=== PATIENT | male | born 1975 | race Caucasian/White ===

== ENCOUNTER 2022-04-30 14:19 | Emergency (ER) | payer OTHER, SELFPAY ==
[2022-04-30] VITALS (25 sets, daily range): BP systolic 122–157; BP diastolic 71–101; PULSE 48–72; TEMP 36.6; O2SAT 94–98; BMI 29.1
--- NOTE | 2022-04-30 15:00 | CRLHL7_ITS ---
For Patients: As a result of the Century Cures Act, medical imaging exams and procedure reports are released immediately into your electronic medical record. You may view this report before your referring provider. If you have questions, please contact your health care provider. INDICATION: Chest/back pain TECHNIQUE: Noncontrast CT of the chest. CTA of the chest, abdomen, and pelvis. 95 cc of Isovue administered intravenously COMPARISON: CT pelvis dated 03/25/2021, and CT of the abdomen and pelvis dated 03/17/2021. FINDINGS: Vascular structures: Status post previous median sternotomy and aortic valve repair. Coronary artery calcifications. No thoracic aortic aneurysm or intramural hematoma. No dissection in the descending or transverse aorta. Too much motion is present in the ascending aorta to detect a dissection in the ascending portion. The main pulmonary artery is normal in size. No central pulmonary artery embolism. No abdominal aortic aneurysm or dissection. Proximal visceral and renal arteries are patent. Accessory renal arteries bilaterally. Iliac arteries are patent. Thyroid: Unremarkable Airways: The central airways are patent. No bronchiectasis Lungs: No suspicious pulmonary opacities. Heart/Pericardium: Unremarkable. Pleural spaces: No pneumothorax or pleural effusion. Lymph Nodes: No significant axillary, mediastinal, or hilar lymphadenopathy. Arterial phase imaging limits evaluation of solid organs and bowel. Liver: Non-cirrhotic morphology. No suspicious arterial phase liver lesion. Gallbladder: Unremarkable. No intra or extrahepatic biliary ductal dilatation Spleen: Normal in size. Adrenal glands: Unremarkable. Kidneys: No hydronephrosis. Symmetric enhancement. Pancreas: Unremarkable. Lymph nodes: No retroperitoneal, mesenteric, inguinal, or pelvic adenopathy by CT criteria. Bowel: No bowel obstruction. Urinary bladder: Apparent uniform diffuse urinary bladder wall thickening, which could be due to underdistention. Reproductive structures: Unremarkable. Peritoneum: No abdominal/pelvis ascites or free intraperitoneal air. MSK: No aggressive appearing osseous lesion. 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 Other: Previous left inguinal hernia repair. The previous postoperative hematoma has resolved. IMPRESSION: 1. No aortic aneurysm, thoracic aortic intramural hematoma, or dissection. 2. No central pulmonary artery embolism. 3. Previous median sternotomy and aortic valve repair. 4. Coronary artery disease. 5. Apparent urinary bladder wall thickening may be due to underdistention. Correlate with signs/symptoms of urinary tract infection. Please note that all CT scans at this facility use dose modulation, iterative reconstruction, and/or weight-based dosing when appropriate to reduce radiation dose to as low as reasonably achievable. Dictated by Ruben Saldivar MD @ 04/30/2022 4:16:51 PM (Electronically Signed)
[2022-04-30 15:07] LABS: Basophils Absolute Auto 0.03 K/uL (0.00-0.30); Basophils Percent Auto 0.5 % (0.0-3.0); Eosinophils Absolute Auto 0.25 K/uL (0.00-0.50); Eosinophils Percent Auto 3.9 % (0.0-7.0); Hematocrit 43.7 % (37.0-53.0); Hemoglobin* 14.8 gm/dL (13.5-17.5); Immature Granulocytes Abs Auto 0.02 K/uL (0.00-0.30); Lymphocytes Absolute Auto 1.42 K/uL (0.90-2.90); Mean Corpuscular HGB Conc 34 gm/dL (32-36); Mean Corpuscular Hemoglobin 29 pg (26-34); Mean Corpuscular Volume 85 fL (80-100); Monocytes Percent Auto 5.9 % (0.0-11.0); Neutrophils Absolute Auto 4.36 K/uL (1.7-7.0); Neutrophils Percent Auto 67.4 % (42.0-72.0); Platelet Count* 252 K/uL (140-440); RDW Coefficient of Variation % 12.4 % (11.5-15.5); Red Blood Count 5.13 m/uL (4.30-5.90); White Blood Count* 6.46 K/uL (4.50-11.00)
[2022-04-30 15:17] LABS: Slide Review Reflex No
[2022-04-30 15:18] LABS: Chloride* 103 mmol/L (96-114)
[2022-04-30 15:19] LABS: Albumin* 4.4 g/dL (3.3-5.0); Potassium* 3.8 mmol/L (3.6-5.1); Sodium* 138 mmol/L (135-149)
[2022-04-30 15:21] LABS: Creatinine* 1.1 mg/dL (0.5-1.5); Est. Creatinine Clearance* 74.92; Estimated Glomerular Filt Rate 83 ml/min
[2022-04-30 15:22] LABS: Alanine Aminotransferase* 36 U/L (4-50); Alkaline Phosphatase* 62 U/L (40-150); Aspartate Amino Transferase* 31 U/L (12-35); Bilirubin Direct* 0.2 mg/dL (0.0-0.5); Bilirubin Total* 0.6 mg/dL (0.1-1.5); Blood Urea Nitrogen* 17 mg/dL (5-24); Carbon Dioxide* 28 mmol/L (20-32); Glucose* 116 mg/dL (60-115); Lipase* 96 U/L (23-300); Total Protein* 7.4 g/dL (6.0-8.3)
[2022-04-30 15:25] LABS: C Reactive Protein* < 0.5 mg/dL (0.5-1.0)
--- NOTE | 2022-04-30 15:48 | ED.GENADULT ---
HPI - General Adult General Chief complaint: Chest Pain <Michelle Galindo MD - Last Filed: 04/30/22 16:22> Stated complaint: Possible heart attack symptoms, clammy/tingling <Michelle Galindo MD - Last Filed: 04/30/22 16:22> Time Seen by Provider: 04/30/22 14:40 <Michelle Galindo MD - Last Filed: 04/30/22 16:22> Source: patient <Michelle Galindo MD - Last Filed: 04/30/22 16:22> Mode of arrival: ambulatory <Michelle Galindo MD - Last Filed: 04/30/22 16:22> Limitations: no limitations <Michelle Galindo MD - Last Filed: 04/30/22 16:22> History of Present Illness HPI narrative: 46-year-old male coming in today concerned about chest pain. He states that on Sunday of this week, so 5 days ago, he had an episode of central chest pain that radiated to the middle of his back. This pain was very sharp very debilitating but only lasted about 15 minutes or so. The following day on Sunday, he felt very tired and he came home after work and slept for 10 hours which is very unusual. He felt fine for the remainder of the week and weekend until today when he was in his usual state of health at and started having again, that same central chest pain and pain that radiated to the middle of his back. He thought he needed to go out for a walk to shake it off so he grabbed this dog and went for a walk. 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 Did not make the chest pain any better and so he came to the ER. Now that he is here, his chest pain and back pain has resolved. While this was occurring he felt very clammy. He denied any dizziness but again had that episode of feeling lightheaded when he bent down. He denies any fevers or chills recently. Normal appetite today. Nothing seems to make this chest and back pain better or worse. 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 He also has a very strong history of heart disease: Sister had a heart attack in her early 40s and father had a major heart attack when he was 47. Patient uses nicotine troches but does not smoke or use tobacco, denies any drug use including cocaine, heroin or methamphetamines. <Michelle Galindo MD - Last Filed: 04/30/22 16:22> Related Data Home medications: Home Medications Medication Instructions Recorded Confirmed aspirin .ROUTE 04/30/22 lisinopril 5 mg tablet mg 04/30/22 metoprolol succinate 25 mg mg PO 04/30/22 tablet,extended release 24 hr omeprazole 20 mg capsule,delayed mg 04/30/22 release warfarin 2.5 mg tablet mg 04/30/22 <Michelle Galindo MD - Last Filed: 04/30/22 16:22> Allergies/adverse reactions: Allergies Allergy/AdvReac Type Severity Reaction Status Date / Time No Known Drug Allergies Allergy Verified 04/30/22 15:16 <Michelle Galindo MD - Last Filed: 04/30/22 16:22> Review of Systems Status of ROS: Reports: 10 or more systems reviewed and unremarkable except as noted in History and below <Michelle Galindo MD - Last Filed: 04/30/22 16:22> [facility] Social History: Social History Smoking Status: Former smoker Do you use any of these nicotine containing products: None Second hand tobacco smoke exposure: No How often do you have a drink containing alcohol: monthly or less How many standard drinks containing alcohol do you have on a typical day: 1 or 2 How often do you have six or more drinks on one occasion: Never AUDIT-C Alcohol total score: 1 Non-prescribed substance use: denies use <Michelle Galindo MD - Last Filed: 04/30/22 16:22> Exam Narrative: Exam Narrative: Well-nourished well-developed patient in no acute distress. Alert and oriented. Answers questions appropriately. Mood and affect are appropriate. Thoughts are goal oriented and rational. No tangential or magical thinking noted. Patient speaks in full sentences without needing to catch his breath. HEENT: Normocephalic atraumatic. Pupils are equally round reactive to light. Extraocular muscles are intact. Conjunctivae are moist without any icterus noted. Moist mucous membranes. Posterior pharynx is normal. Neck is soft without any lymphadenopathy or thyromegaly. No masses are appreciated. Cardiovascular: Heart is regular rate and rhythm S1 and S2 are present without any murmurs. Pain is not reproduced with palpation of the chest wall. He has scar the central chest wall consistent with aortic valve replacement. Lungs: Clear to auscultation bilaterally no wheezes rhonchi or rales are appreciated. Patient takes deep breaths without any discomfort. Abdomen: Soft and nontender nondistended with normal bowel sounds. No guarding or rebound. No masses or organomegaly appreciated. Extremities: Bilateral lower extremities are without edema. Normal DP and PT pulses. Skin: Well perfused without any obvious rashes. <Michelle Galindo MD - Last Filed: 04/30/22 16:22> Const: Vital Signs, click to edit/add: Vital Signs - 24 hr 04/30/22 14:32 04/30/22 14:29 04/30/22 14:30 Temperature 97.9 F Pulse Rate 70 70 Pulse Rate [Right Pulse Oximeter] 69 Blood Pressure 157/101 H Blood Pressure [Le ft Upper Arm] 157/101 H Pulse Oximetry 94 95 94 Oxygen Delivery Me thod Room Air 04/30/22 14:37 04/30/22 15:02 04/30/22 15:03 Temperature Pulse Rate 70 66 63 Pulse Rate [Right Pulse Oximeter] Blood Pressure 138/91 H 132/86 Blood Pressure [Le ft Upper Arm] Pulse Oximetry 94 95 95 Oxygen Delivery Me thod 04/30/22 15:30 04/30/22 15:32 04/30/22 15:33 Temperature Pulse Rate 62 68 64 Pulse Rate [Right Pulse Oximeter] Blood Pressure 131/83 Blood Pressure [Le ft Upper Arm] Pulse Oximetry 96 96 95 Oxygen Delivery Me thod 04/30/22 16:00 04/30/22 16:02 Temperature Pulse Rate 72 68 Pulse Rate [Right Pulse Oximeter] Blood Pressure 122/79 Blood Pressure [Le ft Upper Arm] Pulse Oximetry 96 95 Oxygen Delivery Me thod <Michelle Galindo MD - Last Filed: 04/30/22 16:22> Vital Signs, click to edit/add: Vital Signs - 24 hr 04/30/22 14:32 04/30/22 14:29 04/30/22 14:30 Temperature 97.9 F Pulse Rate 70 70 Pulse Rate [Right Pulse Oximeter] 69 Blood Pressure 157/101 H Blood Pressure [Le ft Upper Arm] 157/101 H Pulse Oximetry 94 95 94 Oxygen Delivery Me thod Room Air 04/30/22 14:37 04/30/22 15:02 04/30/22 15:03 Temperature Pulse Rate 70 66 63 Pulse Rate [Right Pulse Oximeter] Blood Pressure 138/91 H 132/86 Blood Pressure [Le ft Upper Arm] Pulse Oximetry 94 95 95 Oxygen Delivery Me thod 04/30/22 15:30 04/30/22 15:32 04/30/22 15:33 Temperature Pulse Rate 62 68 64 Pulse Rate [Right Pulse Oximeter] Blood Pressure 131/83 Blood Pressure [Le ft Upper Arm] Pulse Oximetry 96 96 95 Oxygen Delivery Me thod 04/30/22 16:00 04/30/22 16:02 Temperature Pulse Rate 72 68 Pulse Rate [Right Pulse Oximeter] Blood Pressure 122/79 Blood Pressure [Le ft Upper Arm] Pulse Oximetry 96 95 Oxygen Delivery Me thod <Dinah Cordova MD - Last Filed: 06/14/22 01:56> Course Course Hospital Course: Initial EKG showed normal sinus rhythm. We will rule out coronary artery disease with serial cardiac enzymes, as well as aortic dissection given his symptoms. Care will be transferred to oncoming physician. <Michelle Galindo MD - Last Filed: 04/30/22 16:22> Vital Signs Vital signs: Initial Vital Signs Pulse Rate 70 04/30/22 14:29 Blood Pressure 157/101 H 04/30/22 14:29 Blood Pressure Mean 119 04/30/22 14:29 Pulse Oximetry 95 04/30/22 14:29 Vital Signs Pulse Rate 70 04/30/22 14:29 Blood Pressure 157/101 H 04/30/22 14:29 Pulse Oximetry 95 04/30/22 14:29 Temperature 97.9 F 04/30/22 14:32 Pulse Rate 51 L 04/30/22 19:02 Blood Pressure 128/83 04/30/22 19:02 Pulse Oximetry 96 04/30/22 19:02 Oxygen Delivery Method 04/30/22 14:32 <Michelle Galindo MD - Last Filed: 04/30/22 16:22> Initial Vital Signs Pulse Rate 70 04/30/22 14:29 Blood Pressure 157/101 H 04/30/22 14:29 Blood Pressure Mean 119 04/30/22 14:29 Pulse Oximetry 95 04/30/22 14:29 Vital Signs Pulse Rate 70 04/30/22 14:29 Blood Pressure 157/101 H 04/30/22 14:29 Pulse Oximetry 95 04/30/22 14:29 Temperature 97.9 F 04/30/22 14:32 Pulse Rate 51 L 04/30/22 19:02 Blood Pressure 128/83 04/30/22 19:02 Pulse Oximetry 96 04/30/22 19:02 Oxygen Delivery Method 04/30/22 14:32 <Dinah Cordova MD - Last Filed: 06/14/22 01:56> Medical Decision Making MDM Narrative Medical decision making narrative: 1. Chest pain-at this time EKGs and cardiac enzymes are reassuring. In addition chest CT shows no evidence of aortic dissection. However, would recommend follow-up for scheduled outpatient stress test. Would recommend light activity until such time. Of course for recurrence of pain would have him return to the emergency room for further evaluation. 2. Disposition-home and return as needed for recurrent pain. <Dinah Cordova MD - Last Filed: 06/14/22 01:56> Medical Records Medical records reviewed: Yes I reviewed the patient's medical records <Dinah Cordova MD - Last Filed: 06/14/22 01:56> Lab Data Lab results reviewed: Yes I reviewed the patient's lab results <Dinah Cordova MD - Last Filed: 06/14/22 01:56> Labs: Lab Results 04/30/22 04/30/22 04/30/22 Range/Units 14:30 14:30 14:30 WBC 6.46 (4.50-11.00) K/uL RBC 5.13 (4.30-5.90) m/uL Hgb 14.8 (13.5-17.5) gm/dL Hct 43.7 (37.0-53.0) % MCV 85 (80-100) fL MCH 29 (26-34) pg MCHC 34 (32-36) gm/dL RDW Coeff of Justin 12.4 (11.5-15.5) % Plt Count 252 (140-440) K/uL Neut % (Auto) 67.4 (42.0-72.0) % Lymph % (Auto) 22.0 (20-44) % [place] % (Auto) 5.9 (0.0-11.0) % Eos % (Auto) 3.9 (0.0-7.0) % Baso % (Auto) 0.5 (0.0-3.0) % Neut # (Auto) 4.36 (1.7-7.0) K/uL Lymph # (Auto) 1.42 (0.90-2.90) K/uL [place] # (Auto) 0.40 (0.00-0.90) K/UL Eos # (Auto) 0.25 (0.00-0.50) K/uL Baso # (Auto) 0.03 (0.00-0.30) K/uL Abs Immat Gran (auto) 0.02 (0.00-0.30) K/uL ESR 2 (2-15) mm/hr INR (0.91-1.10) Sodium 138 (135-149) mmol/L Potassium 3.8 (3.6-5.1) mmol/L Chloride 103 (96-114) mmol/L Carbon Dioxide 28 (20-32) mmol/L BUN 17 (5-24) mg/dL Creatinine 1.1 (0.5-1.5) mg/dL Estimated Creat Clear 74.92 Estimated GFR 83 ml/min Glucose 116 H (60-115) mg/dL Lactate (0.5-1.9) mmol/L Calcium 9.0 (8.4-10.6) mg/dL Total Bilirubin 0.6 (0.1-1.5) mg/dL Direct Bilirubin 0.2 (0.0-0.5) mg/dL AST 31 (12-35) U/L ALT 36 (4-50) U/L Alkaline Phosphatase 62 (40-150) U/L Troponin I (0.01-0.04) ng/mL C-Reactive Protein < 0.5 L (0.5-1.0) mg/dL Total Protein 7.4 (6.0-8.3) g/dL Albumin 4.4 (3.3-5.0) g/dL Lipase 96 (23-300) U/L Urine Color (Yellow) Urine Appearance (Clear) Urine pH (5.0-8.5) Ur Specific [place] (1.000-1.030) Urine Protein (Negative) Urine Glucose (UA) (Negative) Urine Ketones (Negative) Urine Blood (Negative) Urine Nitrite (Negative) Urine Bilirubin (Negative) Urine Urobilinogen (0.2-1.0) Ur Leukocyte Esterase (Negative) Urine RBC (0-2) Urine WBC (0-5) Ur Squamous Epith Cells (None-Few) Urine Bacteria (None) SARS-CoV-2 (PCR) (Negative) Influenza Type A (PCR) (Negative) Influenza Type B (PCR) (Negative) POC Troponin I (0.01-0.04) ng/ml 04/30/22 04/30/22 04/30/22 Range/Units 14:30 14:30 15:00 WBC (4.50-11.00) K/uL RBC (4.30-5.90) m/uL Hgb (13.5-17.5) gm/dL Hct (37.0-53.0) % MCV (80-100) fL MCH (26-34) pg MCHC (32-36) gm/dL RDW Coeff of Justin (11.5-15.5) % Plt Count (140-440) K/uL Neut % (Auto) (42.0-72.0) % Lymph % (Auto) (20-44) % [place] % (Auto) (0.0-11.0) % Eos % (Auto) (0.0-7.0) % Baso % (Auto) (0.0-3.0) % Neut # (Auto) (1.7-7.0) K/uL Lymph # (Auto) (0.90-2.90) K/uL [place] # (Auto) (0.00-0.90) K/UL Eos # (Auto) (0.00-0.50) K/uL Baso # (Auto) (0.00-0.30) K/uL Abs Immat Gran (auto) (0.00-0.30) K/uL ESR (2-15) mm/hr INR 1.71 H (0.91-1.10) Sodium (135-149) mmol/L Potassium (3.6-5.1) mmol/L Chloride (96-114) mmol/L Carbon Dioxide (20-32) mmol/L BUN (5-24) mg/dL Creatinine (0.5-1.5) mg/dL Estimated Creat Clear Estimated GFR ml/min Glucose (60-115) mg/dL Lactate 2.0 H (0.5-1.9) mmol/L Calcium (8.4-10.6) mg/dL Total Bilirubin (0.1-1.5) mg/dL Direct Bilirubin (0.0-0.5) mg/dL AST (12-35) U/L ALT (4-50) U/L Alkaline Phosphatase (40-150) U/L Troponin I (0.01-0.04) ng/mL C-Reactive Protein (0.5-1.0) mg/dL Total Protein (6.0-8.3) g/dL Albumin (3.3-5.0) g/dL Lipase (23-300) U/L Urine Color (Yellow) Urine Appearance (Clear) Urine pH (5.0-8.5) Ur Specific [place] (1.000-1.030) Urine Protein (Negative) Urine Glucose (UA) (Negative) Urine Ketones (Negative) Urine Blood (Negative) Urine Nitrite (Negative) Urine Bilirubin (Negative) Urine Urobilinogen (0.2-1.0) Ur Leukocyte Esterase (Negative) Urine RBC (0-2) Urine WBC (0-5) Ur Squamous Epith Cells (None-Few) Urine Bacteria (None) SARS-CoV-2 (PCR) (Negative) Influenza Type A (PCR) (Negative) Influenza Type B (PCR) (Negative) POC Troponin I 0.00 L (0.01-0.04) ng/ml 04/30/22 04/30/22 04/30/22 Range/Units 17:43 18:15 18:34 WBC (4.50-11.00) K/uL RBC (4.30-5.90) m/uL Hgb (13.5-17.5) gm/dL Hct (37.0-53.0) % MCV (80-100) fL MCH (26-34) pg MCHC (32-36) gm/dL RDW Coeff of Justin (11.5-15.5) % Plt Count (140-440) K/uL Neut % (Auto) (42.0-72.0) % Lymph % (Auto) (20-44) % [place] % (Auto) (0.0-11.0) % Eos % (Auto) (0.0-7.0) % Baso % (Auto) (0.0-3.0) % Neut # (Auto) (1.7-7.0) K/uL Lymph # (Auto) (0.90-2.90) K/uL [place] # (Auto) (0.00-0.90) K/UL Eos # (Auto) (0.00-0.50) K/uL Baso # (Auto) (0.00-0.30) K/uL Abs Immat Gran (auto) (0.00-0.30) K/uL ESR (2-15) mm/hr INR (0.91-1.10) Sodium (135-149) mmol/L Potassium (3.6-5.1) mmol/L Chloride (96-114) mmol/L Carbon Dioxide (20-32) mmol/L BUN (5-24) mg/dL Creatinine (0.5-1.5) mg/dL Estimated Creat Clear Estimated GFR ml/min Glucose (60-115) mg/dL Lactate (0.5-1.9) mmol/L Calcium (8.4-10.6) mg/dL Total Bilirubin (0.1-1.5) mg/dL Direct Bilirubin (0.0-0.5) mg/dL AST (12-35) U/L ALT (4-50) U/L Alkaline Phosphatase (40-150) U/L Troponin I < 0.01 L (0.01-0.04) ng/mL C-Reactive Protein (0.5-1.0) mg/dL Total Protein (6.0-8.3) g/dL Albumin (3.3-5.0) g/dL Lipase (23-300) U/L Urine Color Yellow (Yellow) Urine Appearance Clear (Clear) Urine pH 5.5 (5.0-8.5) Ur Specific [place] <= 1.005 (1.000-1.030) Urine Protein Negative (Negative) Urine Glucose (UA) Negative (Negative) Urine Ketones Negative (Negative) Urine Blood Negative (Negative) Urine Nitrite Negative (Negative) Urine Bilirubin Negative (Negative) Urine Urobilinogen 0.2 (0.2-1.0) Ur Leukocyte Esterase Negative (Negative) Urine RBC 0-2 (0-2) Urine WBC 0-2 (0-5) Ur Squamous Epith Cells None (None-Few) Urine Bacteria None (None) SARS-CoV-2 (PCR) Negative SARS-CoV-2 (Negative) Influenza Type A (PCR) Negative PCR FLU A (Negative) Influenza Type B (PCR) Negative PCR FLU B (Negative) POC Troponin I (0.01-0.04) ng/ml <Michelle Galindo MD - Last Filed: 04/30/22 16:22> Lab Results 04/30/22 04/30/22 04/30/22 Range/Units 14:30 14:30 14:30 WBC 6.46 (4.50-11.00) K/uL RBC 5.13 (4.30-5.90) m/uL Hgb 14.8 (13.5-17.5) gm/dL Hct 43.7 (37.0-53.0) % MCV 85 (80-100) fL MCH 29 (26-34) pg MCHC 34 (32-36) gm/dL RDW Coeff of Justin 12.4 (11.5-15.5) % Plt Count 252 (140-440) K/uL Neut % (Auto) 67.4 (42.0-72.0) % Lymph % (Auto) 22.0 (20-44) % [place] % (Auto) 5.9 (0.0-11.0) % Eos % (Auto) 3.9 (0.0-7.0) % Baso % (Auto) 0.5 (0.0-3.0) % Neut # (Auto) 4.36 (1.7-7.0) K/uL Lymph # (Auto) 1.42 (0.90-2.90) K/uL [place] # (Auto) 0.40 (0.00-0.90) K/UL Eos # (Auto) 0.25 (0.00-0.50) K/uL Baso # (Auto) 0.03 (0.00-0.30) K/uL Abs Immat Gran (auto) 0.02 (0.00-0.30) K/uL ESR 2 (2-15) mm/hr INR (0.91-1.10) Sodium 138 (135-149) mmol/L Potassium 3.8 (3.6-5.1) mmol/L Chloride 103 (96-114) mmol/L Carbon Dioxide 28 (20-32) mmol/L BUN 17 (5-24) mg/dL Creatinine 1.1 (0.5-1.5) mg/dL Estimated Creat Clear 74.92 Estimated GFR 83 ml/min Glucose 116 H (60-115) mg/dL Lactate (0.5-1.9) mmol/L Calcium 9.0 (8.4-10.6) mg/dL Total Bilirubin 0.6 (0.1-1.5) mg/dL Direct Bilirubin 0.2 (0.0-0.5) mg/dL AST 31 (12-35) U/L ALT 36 (4-50) U/L Alkaline Phosphatase 62 (40-150) U/L Troponin I (0.01-0.04) ng/mL C-Reactive Protein < 0.5 L (0.5-1.0) mg/dL Total Protein 7.4 (6.0-8.3) g/dL Albumin 4.4 (3.3-5.0) g/dL Lipase 96 (23-300) U/L Urine Color (Yellow) Urine Appearance (Clear) Urine pH (5.0-8.5) Ur Specific [place] (1.000-1.030) Urine Protein (Negative) Urine Glucose (UA) (Negative) Urine Ketones (Negative) Urine Blood (Negative) Urine Nitrite (Negative) Urine Bilirubin (Negative) Urine Urobilinogen (0.2-1.0) Ur Leukocyte Esterase (Negative) Urine RBC (0-2) Urine WBC (0-5) Ur Squamous Epith Cells (None-Few) Urine Bacteria (None) SARS-CoV-2 (PCR) (Negative) Influenza Type A (PCR) (Negative) Influenza Type B (PCR) (Negative) POC Troponin I (0.01-0.04) ng/ml 04/30/22 04/30/22 04/30/22 Range/Units 14:30 14:30 15:00 WBC (4.50-11.00) K/uL RBC (4.30-5.90) m/uL Hgb (13.5-17.5) gm/dL Hct (37.0-53.0) % MCV (80-100) fL MCH (26-34) pg MCHC (32-36) gm/dL RDW Coeff of Justin (11.5-15.5) % Plt Count (140-440) K/uL Neut % (Auto) (42.0-72.0) % Lymph % (Auto) (20-44) % [place] % (Auto) (0.0-11.0) % Eos % (Auto) (0.0-7.0) % Baso % (Auto) (0.0-3.0) % Neut # (Auto) (1.7-7.0) K/uL Lymph # (Auto) (0.90-2.90) K/uL [place] # (Auto) (0.00-0.90) K/UL Eos # (Auto) (0.00-0.50) K/uL Baso # (Auto) (0.00-0.30) K/uL Abs Immat Gran (auto) (0.00-0.30) K/uL ESR (2-15) mm/hr INR 1.71 H (0.91-1.10) Sodium (135-149) mmol/L Potassium (3.6-5.1) mmol/L Chloride (96-114) mmol/L Carbon Dioxide (20-32) mmol/L BUN (5-24) mg/dL Creatinine (0.5-1.5) mg/dL Estimated Creat Clear Estimated GFR ml/min Glucose (60-115) mg/dL Lactate 2.0 H (0.5-1.9) mmol/L Calcium (8.4-10.6) mg/dL Total Bilirubin (0.1-1.5) mg/dL Direct Bilirubin (0.0-0.5) mg/dL AST (12-35) U/L ALT (4-50) U/L Alkaline Phosphatase (40-150) U/L Troponin I (0.01-0.04) ng/mL C-Reactive Protein (0.5-1.0) mg/dL Total Protein (6.0-8.3) g/dL Albumin (3.3-5.0) g/dL Lipase (23-300) U/L Urine Color (Yellow) Urine Appearance (Clear) Urine pH (5.0-8.5) Ur Specific [place] (1.000-1.030) Urine Protein (Negative) Urine Glucose (UA) (Negative) Urine Ketones (Negative) Urine Blood (Negative) Urine Nitrite (Negative) Urine Bilirubin (Negative) Urine Urobilinogen (0.2-1.0) Ur Leukocyte Esterase (Negative) Urine RBC (0-2) Urine WBC (0-5) Ur Squamous Epith Cells (None-Few) Urine Bacteria (None) SARS-CoV-2 (PCR) (Negative) Influenza Type A (PCR) (Negative) Influenza Type B (PCR) (Negative) POC Troponin I 0.00 L (0.01-0.04) ng/ml 04/30/22 04/30/22 04/30/22 Range/Units 17:43 18:15 18:34 WBC (4.50-11.00) K/uL RBC (4.30-5.90) m/uL Hgb (13.5-17.5) gm/dL Hct (37.0-53.0) % MCV (80-100) fL MCH (26-34) pg MCHC (32-36) gm/dL RDW Coeff of Justin (11.5-15.5) % Plt Count (140-440) K/uL Neut % (Auto) (42.0-72.0) % Lymph % (Auto) (20-44) % [place] % (Auto) (0.0-11.0) % Eos % (Auto) (0.0-7.0) % Baso % (Auto) (0.0-3.0) % Neut # (Auto) (1.7-7.0) K/uL Lymph # (Auto) (0.90-2.90) K/uL [place] # (Auto) (0.00-0.90) K/UL Eos # (Auto) (0.00-0.50) K/uL Baso # (Auto) (0.00-0.30) K/uL Abs Immat Gran (auto) (0.00-0.30) K/uL ESR (2-15) mm/hr INR (0.91-1.10) Sodium (135-149) mmol/L Potassium (3.6-5.1) mmol/L Chloride (96-114) mmol/L Carbon Dioxide (20-32) mmol/L BUN (5-24) mg/dL Creatinine (0.5-1.5) mg/dL Estimated Creat Clear Estimated GFR ml/min Glucose (60-115) mg/dL Lactate (0.5-1.9) mmol/L Calcium (8.4-10.6) mg/dL Total Bilirubin (0.1-1.5) mg/dL Direct Bilirubin (0.0-0.5) mg/dL AST (12-35) U/L ALT (4-50) U/L Alkaline Phosphatase (40-150) U/L Troponin I < 0.01 L (0.01-0.04) ng/mL C-Reactive Protein (0.5-1.0) mg/dL Total Protein (6.0-8.3) g/dL Albumin (3.3-5.0) g/dL Lipase (23-300) U/L Urine Color Yellow (Yellow) Urine Appearance Clear (Clear) Urine pH 5.5 (5.0-8.5) Ur Specific [place] <= 1.005 (1.000-1.030) Urine Protein Negative (Negative) Urine Glucose (UA) Negative (Negative) Urine Ketones Negative (Negative) Urine Blood Negative (Negative) Urine Nitrite Negative (Negative) Urine Bilirubin Negative (Negative) Urine Urobilinogen 0.2 (0.2-1.0) Ur Leukocyte Esterase Negative (Negative) Urine RBC 0-2 (0-2) Urine WBC 0-2 (0-5) Ur Squamous Epith Cells None (None-Few) Urine Bacteria None (None) SARS-CoV-2 (PCR) Negative SARS-CoV-2 (Negative) Influenza Type A (PCR) Negative PCR FLU A (Negative) Influenza Type B (PCR) Negative PCR FLU B (Negative) POC Troponin I (0.01-0.04) ng/ml <Dinah Cordova MD - Last Filed: 06/14/22 01:56> Imaging Data CT Chest/Ab/Pelvis: Attestation: I have reviewed the pertinent imaging results. <Dinah Cordova MD - Last Filed: 06/14/22 01:56> Radiologist's impression: 1. No aortic aneurysm, thoracic aortic intramural hematoma, or dissection. 2. No central pulmonary artery embolism. 3. Previous median sternotomy and aortic valve repair. 4. Coronary artery disease. 5. Apparent urinary bladder wall thickening may be due to underdistention. Correlate with signs/symptoms of urinary tract infection. <Dinah Cordova MD - Last Filed: 06/14/22 01:56> ECG Data Attestation: I personally reviewed and interpreted this ECG as follows: <Dinah Cordova MD - Last Filed: 06/14/22 01:56> Prior ECG tracings: not available for review <Dinah Cordova MD - Last Filed: 06/14/22 01:56> Interpretation: EKG 1. Shows sinus rhythm without any acute ST or T-wave changes noted. QT and PA intervals within normal limits. Heart rate is 67. EKG 2. Sinus bradycardia at a rate of 57. No acute ST or T-wave changes noted. EKG 3. <Dinah Cordova MD - Last Filed: 06/14/22 01:56> Discharge Plan Discharge Clinical Impression: Chest pain <Michelle Galindo MD - Last Filed: 04/30/22 16:22> Patient Disposition: Home, Self-Care <Michelle Galindo MD - Last Filed: 04/30/22 16:22> Condition: Improved <Michelle Galindo MD - Last Filed: 04/30/22 16:22> Additional Instructions: Follow-up with your primary MD for stress test. Recommend light activity until that time. Urinalysis was normal. You will receive a phone call if your COVID is positive. Return to the emergency room as needed. <Michelle Galindo MD - Last Filed: 04/30/22 16:22> Prescriptions: No Action warfarin 2.5 mg tablet omeprazole 20 mg capsule,delayed release(DR/EC) lisinopril 5 mg tablet metoprolol succinate 25 mg tablet extended release 24 hr PO aspirin [Baby Aspirin] .ROUTE <Michelle Galindo MD - Last Filed: 04/30/22 16:22> Stand Alone Forms: [employer] Info Instructions <Michelle Galindo MD - Last Filed: 04/30/22 16:22>
[2022-04-30 15:54] LABS: Erythrocyte SedimentationRate* 2 mm/hr (2-15)
[2022-04-30 16:31] LABS: INR 1.71 (0.91-1.10); Prothrombin Time 20.5 Seconds
[2022-04-30 18:23] LABS: Appearance Urine Clear (Clear); Bilirubin Urine Negative (Negative); Blood Urine Negative (Negative); Color Urine Yellow (Yellow); Glucose Urine Negative (Negative); Ketones Urine Negative (Negative); Leukocyte Esterase Urine Negative (Negative); Nitrite Urine Negative (Negative); Protein Urine Negative (Negative); Specific Gravity Urine <= 1.005 (1.000-1.030); Urobilinogen Urine 0.2 (0.2-1.0); pH Urine 5.5 (5.0-8.5)
[2022-04-30 18:25] LABS: Troponin I* < 0.01 ng/mL (0.01-0.04)
[2022-04-30 18:37] LABS: RBC Urine 0-2 (0-2); WBC Urine 0-2 (0-5)
[2022-04-30 19:34] LABS: PCR FLU A Negative PCR FLU A (Negative); PCR FLU B Negative PCR FLU B (Negative)
[2022-04-30 19:41] LABS: SARS PCR* Negative SARS-CoV-2 (Negative)
== END 2022-04-30 19:10 | disposition home or self-care (01) ==
PROVIDERS: Family Medicine; Emergency Provider Family Medicine
DX: R07.9 Chest pain, unspecified (principal)
CPT/HCPCS: 36415; 71270; 74177; 80048; 80076; 81001; 83605; 83690; 84484; 85025; 85610; 85651; 86140; 87631; 93005; 99285; Q9967

== ENCOUNTER 2025-02-09 13:00 | Emergency (ER) | payer BC, SELFPAY ==
[2025-02-09 13:02] VITALS: BP 157/78; PULSE 59; RESP 16; TEMP 35.6; O2SAT 96; BMI 29.1
--- OUTSIDE RECORDS SUMMARY | 2025-02-09 13:02 | XMS_ITS | Clinical Summary ---
Author Organization [employer] [facility] Address [address] [place] [id number] Care Team Providers Care Associate Professor Of Chemistry Name Role Phone Votel, Leif Odonnell MD Primary Care Provider + Allergies No known active allergies Medications aspirin chewable 81 mg chewable tabletIndications:S /P AVR (aortic valve replacement) Take 1 tablet by mouth once daily with a meal. 90 tablet 05/24/2019 1:08 PM CDT 9 Active medication order composer Take 3,000 mcg tablet daily, vitamin D 0 3 Active lisinopriL (PRINIVIL; ZESTRIL) 5 mg tabletIndications:H ypertension, unspecified type Take 1 Tablet (5 mg) by mouth once daily. 90 Tablet 3 4 Active metoprolol succinate (TOPROL XL) 25 mg Sustained-Release tabletIndications:S /P AVR (aortic valve replacement) Take 1 Tablet (25 mg) by mouth once daily. 90 Tablet 3 4 Active omeprazole (PRILOSEC) 20 mg Delayed-Release capsuleIndications: Gastroesophageal reflux disease, unspecified whether esophagitis present TAKE ONE CAPSULE BY MOUTH ONCE EVERY DAY BEFORE A MEAL 90 Capsule 3 4 Active sildenafil citrate (VIAGRA) 25 mg tabletIndications:E rectile dysfunction of organic origin TAKE 1 TABLET BY MOUTH 30 MINUTES TO 4 HOURS PRIOR TO SEXUAL ACTIVITY. MAX DOSE OF 4 TABLETS IN 24 HOUR PERIOD 12 Tablet 1 4 Active warfarin (COUMADIN) 2.5 mg tabletIndications:S /P AVR (aortic valve replacement),Encoun ter for anticoagulation monitoring with international normalized ratio (INR) goal of 1.5-2.5,Anticoagula tion monitoring, special range Take by mouth 2.5 mg (2.5 mg x 1) every Mon, Fri; 5 mg (2.5 mg x 2) all other days in the evening OR as directed 160 Tablet 3 4 Active amoxicillin (AMOXIL) 500 mg capsuleIndications: S/P AVR (aortic valve replacement) Take 4 capsules one hour before dental procedure 4 Capsule 5 4 Active CPAPIndications:CARLTON (obstructive sleep apnea) RESMED CPAP (E0601) machine for home use at pressure: 5-15cmw, Choice of mask (A7030 or A7034) w/full face cushion (A7031) x1/mo, nasal cushion (A7032) x2/mo, or nasal pillows (A7033) x 2/mo; Length of Need: 99 months; Frequency of use: Daily 1 Each 11 4 Active Active Problems Problem Noted Date Diagnosed Date Colon polyp 12/19/2022 Overview (12/19/2022): Colonoscopy 12/2022 TA, SSA, repeat in 5 years Encounter for anticoagulatio n monitoring with international normalized ratio (INR) goal of 1.5-2.5 03/02/2021 Anticoagulation monitoring, special range 2018 S/P AVR (aortic valve replacement) 05/20/2019 Overview (05/20/2019): Aortic Valve size 23mm CARLTON 09/23/2005 AHI-9.8 04/28/2019 Hypertension 09/04/2018 Sensorineural hearing loss, bilateral 07/16/2018 Tinnitus, bilateral 07/16/2018 Esophageal reflux 11/29/2010 Overview (01/30/2017): EGD 01/2017 reactive gastropathy, hiatal hernia, no Rangle's esophagus Resolved Problems Problem Noted Date Diagnosed Date Resolved Date Aortic insufficiency 12/07/2009 021 Overview (12/08/2009): Results of echocardiogram discussed with patient. Will arrange cardiac consult to discuss future follow up and need for dental prophylaxis. Leif Booker M.D....... 12/07/2009 5:43 PM Encounters Date Type Department Care Team Description 02/07/2025 Nurse Triage [facility] [place] [facility] [place] [address] Leif Booker MD Bleeding/Bruising 01/08/2025 11:40 AM CDT Ancillary Procedure [facility] [place] [address] 01/08/2025 10:25 AM CDT Office Visit [facility] [place] [address] Leif Booker MD Cough (Blood in phlegm this am, x 10 days, co-workers had TB) 01/08/2025 Anticoagulation (warfarin) [facility] [place] [facility] [place] [address] 1, [place] [facility] Anticoagulation 01/08/2025 Travel 01/06/2025 Telephone [facility] [place] [address] Leif Booker MD Referral (Tuberculosis (TB) skin test) 12/26/2024 2:45 PM CDT Orders Only [facility] [place] [facility] [place] [address] Lab[facility] [place] [facility] 12/26/2024 Anticoagulation (warfarin) [address] [place] [address] 1, [place] [facility] Anticoagulation 12/26/2024 Travel 11/28/2024 2:00 PM CDT Orders Only [address] [place] [address] Lab[place] [facility] 11/28/2024 Anticoagulation (warfarin) [address] [place] [address] 1, [place] [facility] Anticoagulation 11/28/2024 Travel from Last 3 Months Immunizations Immunization Administration Dates Next Due COVID-19 vaccine ([employer] 30mcg/0.3mL) 12YO+ BIVALENT PF, MDV 01/02/2023 COVID-19 vaccine ([employer] 30mcg/0.3mL) 12YO+ ANN-SUCROSE PF, MDV 12/29/2021 COVID-19 vaccine ([employer] 30mcg/0.3mL) P F, MDV 01/24/2021,12/24/2020 Influenza, IIV4 09/15/2020 Influenza,CCIIV4 PRESERV FREE 05/22/2023 Td (Age >=7 Years) 12/23/2002 Td, Preservative Free (age >= 7 Years) Tdap 02/06/2013 Family History Medical History Relation Name Comments Cancer-colon Father age 66. treated and survived Coronary artery disease Father Diabetes Mother Hypertension Mother Other Mother morbid obesity Relation Name Status Comments Father Alive Mother Alive Social History Tobacco Use Types Packs/Day Years Used Date Smoking Tobacco: Former Cigarettes 0.3 15 Smokeless Tobacco: Former Chew Tobacco Cessation:Counseling Given: Yes Alcohol Use Standard Drinks/Week Comments Yes 0 (1 standard drink = 0.6 oz pur e alcohol) occ PHQ-2 Answer Date Recorded PHQ-2 TOTAL SCORE 0 02/28/2024 Social Connections Answer Date Recorded Do you often feel lonely or isolated from those around you? 0 02/28/2024 Financial Resource Strain Answer Date R ecorded Difficulty of Paying Living Expenses 3 02/28/2024 Difficulty of Paying Living Expenses Not on file 02/28/2024 Food Insecurity Answer Date Recorded Do you worry your food will run out before you are able to buy more? 1 02/28/2024 Transportation Needs Answer Date Record ed Does lack of transportation keep you from medica l appointments? 1 02/28/2024 Does lack of transportation keep you from work, meetings or getting things that you need? 1 02/28/2024 Housing Stability Answer Date Recorded What is your housing situation today? 1 02/28/2024 Utilities Answer Date Recorded Do you have trouble paying f or utilities (for example, heat, electricity, water, phone)? 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 Not on file Not on file Not on file Obstetrics History Last Filed Vital Signs Vital Sign Reading Time Taken Comments Blood Pressure 145/82 01/08/2025 10:24 AM CDT Pulse 62 01/08/2025 10:24 AM CDT Temperature 36.8 C (98.3 F) 01/08/2025 10:24 AM CDT Respiratory Rate 12 12/15/2022 12:20 PM CDT Oxygen Saturation 97% 01/08/2025 10:24 AM CDT Inhaled Oxygen Concentration - - Weight 86.9 kg (191 lb 8 oz) 01/08/2025 10:24 AM CDT Height 167.6 cm (5' 6) 01/08/2025 10:24 AM CDT Body Mass Index 30.91 01/08/2025 10:24 AM CDT Plan of Treatment Upcoming Encounters Date Type Department Care Team (Late st Contact Info) Description 02/20/2025 2:00 PM CDT Orders Only [facility] [address] [place] [address] [place] 03/10/2025 3:20 PM CDT Office Visit [facility] [address] [place] [address] VotelLeif MD [address] [place] [address] Health Maintenance Due Date Last Done Comments HIV for age 15-65 1989 Hepatitis C screening for ag e 18-79 1992 Hepatitis B series for 19+ ( 1 of 3 - 19+ 3-dose series) 1993 COVID-19 vaccine series ( season) 2024 01/02/2023, 12/29/2021, 01/24/2021, Additional history exists Pneumococcal series for age 50+ (1 of 1 - PCV) 2024 Zoster (shingles) series for age 50+ (1 of 2) 2024 Depression screening for age 12+ 02/27/2025 02/28/2024, 01/02/2023, 01/02/2023, Additional history exists Influenza Vaccine (Season Ended) 2025 05/22/20 23, 09/15/2020 BMI (ht and wt on same day) for age 18+ 01/08/2026 01/08/2025, 06/24/2024, 02/28/2024, Additional history exists Colonoscopy through age 75 12/16/202712/15, 12/15/2022, 12/15/2022, Additional history exists Lipids for age 45-75 02/27/2029 02/28/2024, 01/02/2023, 12/29/2021, Additional history exists Tetanus booster 02/27/2034 02/28/2024, 06/0 02/2013, 12/23/2002 Tdap Completed 02/06/2013 Medical Devices Implanted Type Area Venipuncturist Device Identifier Shelf Expiration Date Model / Serial / Lot Anw Hh [id number] Implanted:Qty: 1 on 05/20/2019 by Rc Chambers MD at [facility] Explanted:at [facility] (Quantity not on file) N/A: Aortic Valve [employer] 11/18/2024 [id number] / [id number] / Procedures Procedure Name Priority Date/Time Associated Diagnosis Comments XR CHEST 2 VIEWS PA AND LATERAL STAT 01/08/2025 12:04 PM CDT Acute cough QUANTIFERON -TB GOLD PLUS 1 TUBE ([facility]) Routine 01/08/2025 11:52 AM CDT Exposure to TB PROTIME-INR Routine 01/08/2025 11:49 AM CDT S/P AVR (aortic valve replacement) Encounter for anticoagulation monitoring with international normalized ratio (INR) goal of 1.5-2.5 INR,POCT Routine 12/26/2024 2:38 PM CDT S/P AVR (aortic valve replacement) Encounter for anticoagulation monitoring with international normalized ratio (INR) goal of 1.5-2.5 INR,POCT Routine 11/28/2024 2:05 PM CDT S/P AVR (aortic valve replacement) Anticoagulation monitoring, INR range 1.5-2.5 LIPID PANEL W REFLEX MEASURED LDL Routine 02/28/2024 5:02 PM CDT Routine general medical examination at a health care facility COLONOSCOPY SCREENING Routine 12/15/2022 10:36 AM CDT Family history of colon cancer from Last 3 Months or Most Recently Relevant to Health Maintenance Results * XR CHEST 2 VIEWS PA AND LATERAL (01/08/2025 12:04 PM CDT) Anatomical Region Laterality Modality CHEST, THORAX, Lung, HEART Compu kaela Radiography 01/08/2025 12:1 0 PM CDT Impressions 01/08/2025 12:10 PM CDT No acute findings. No evidence of tuberculosis. Dictated by Yuri Edmondson MD @ 01/08/2025 12:10:14 PM (Electronically Signed) Narrative 01/08/2025 12:10 PM CDT For Patients: As a result of the Cures Act, medical imaging exams and procedure reports are released immediately into your electronic medical record. You may view this report before your referring provider. If you have questions, please contact your health care provider. INDICATION: Acute cough TECHNIQUE: Chest 2 views COMPARISON: 05/22/2019 FINDINGS: Tortuosity of the aorta. Postop changes of valve replacement. Lungs clear. Procedure Note Yuri Edmondson MD - 01/08/2025 For Patients: As a result of the Cures Act, medical imagingexams and procedure reports are released immediately into your electronicmedical record. You may view this report before your referring provider.If you have questions, please contact your health care provider. INDICATION: Acute cough TECHNIQUE: Chest 2 views COMPARISON: 05/22/2019 FINDINGS: Tortuosity of the aorta. Postop changes of valve replacement. Lungs clear. IMPRESSION: No acute findings. No evidence of tuberculosis. Dictated by Yuri Edmondson MD @ 01/08/2025 12:10:14 PM (Electronically Signed) us Leif Booker MD GENERAL IMAGING Final Re sult * QUANTIFERON??-TB GOLD PLUS 1 TUBE ([facility]) (01/08/2025 11:52 AM CDT) QUANTIFERON(R)-T B GOLD PLUS, 1 TUBE NEGATIVE NEGATIVE [facility] Comment: Negative test result. M. tuberculosis complex infection unlikely. NIL 0.03 IU/mL [facility] MITOGEN-NIL 7.74 IU/mL [facility] TB1-NIL 0.01 IU/mL [facility] TB2-NIL 0.01 IU/mL [facility] Comment: The Nil tube value reflects the background interferon gamma immune response of the patient's blood sample. This value has been subtracted from the patient's displayed TB and Mitogen results. Lower than expected results with the Mitogen tube prevent false-negative Quantiferon readings by detecting a patient with a potential immune suppressive condition and/or suboptimal pre-analytical specimen handling. The TB1 Antigen tube is coated with the M. tuberculosis-specific antigens designed to elicit responses from TB antigen primed CD4+ helper T-lymphocytes. The TB2 Antigen tube is coated with the M. tuberculosis-specific antigens designed to elicit responses from TB antigen primed CD4+ helper and CD8+ cytotoxic T-lymphocytes. For additional information, please refer to https://education.Avidia/faq/GES133 (This link is being provided for informational/ educational purposes only.) Blood BLOOD SPECIMEN / Unknown 01/08/2025 11:52 AM CDT 01/08/2025 11:52 AM CDT us Leif Booker MD SEND OUTS Final Re sult [employer] [facility] [address] [place] [address], [facility] [address] [place] [address] * (ABNORMAL) PROTIME-INR [24331.0] - Standing Order (01/08/2025 11:49 AM CDT) Pathologist [facility] INR 2.2(H) <1.3 01/08/2025 2:33 PM CDT [facility] PROTIME 25.2(H) 10.6 - 12.4 sec 01/08/2025 2:33 PM CDT [facility] Blood BLOOD SPECIMEN / Unknown [facility] / Unknown 01/08/2025 11:49 AM CDT 01/08/2025 11:49 AM CDT Narrative [facility] - 01/08/2025 2:33 PM CDT Therapeutic Range 2.0-3.0 for most anticoagulated patients 2.5-3.5 or 4.0 for high risk patients The INR is only used for patients on stable oral anticoagulant therapy. It makes no significant contribution to the diagnosis or treatment of patients whose Protime is prolonged for other reasons. INR results are increased when heparin levels exceed 1.0 U/mL, which corresponds to an aPTT >125 seconds if the patient is on UFH. Leif Booker MD HEMATOLOGY Final Re sult [facility] [address] [place] [address], [place] * (ABNORMAL) INR - POCT [31290.2] - Standing Order (12/26/2024 2:38 PM CDT) Only the most recent of2 resultswithin the time period is included. INR 2.0(H) ratio [facility] Comment: INRs >2.9 may be falsely elevated in patients receiving either unfractionated Heparin or Low Molecular Weight Heparin. Follow up testing in a hospital laboratory may be helpful if clinically indicated. INR results of > or = 5.0 should be verified using the standard venipuncture procedure. Reference Range 0.9-1.1 Moderate-intensity Warfarin Therapy 2.0-3.0 Higher-intensity Warfarin Therapy 3.0-4.0 PROTHROMBIN TIMEP 23.7(H) 10.5 - 13.1 sec [facility] Comment: Point of care fingerstick Prothrombin Time/INR results may vary from venous Prothrombin Time/INR methodologies. Any results exhibiting inconsistency with the patient's clinical status should be repeated using a venous Prothrombin Time/INR method. Blood BLOOD SPECIMEN / Unknown 12/26/2024 2:38 PM CDT 12/26/2024 2:39 PM CDT Leif Booker MD LABORATORY Final Re sult [facility] [address] [place] [address], [place] [phone] [facility] [address] [place] [address] * (ABNORMAL) LIPID PANEL W REFLEX MEASURED LDL (02/28/2024 5:02 PM CDT) CHOLESTEROL,TOTAL 260(H) 100 - 199 mg/dL 02/29/2024 4:57 PM CDT [facility] Comment: Cholesterol, Total Reference Ranges Desirable <200 mg/dL Borderline 200-239 mg/dL High >=240 mg/dL TRIGLYCERIDES 139 <150 mg/dL 02/29/2024 4:57 PM CDT [facility] HDL CHOLESTEROL 51 >40 mg/dL 4:57 PM CDT [facility] NON-HDL CHOLESTEROL 209(H) <145 mg/dl 02/29/2024 4:57 PM CDT [facility] CHOL/HDL RATIO 5.10(H) <4.50 02/29/2024 4:57 PM CDT [facility] LDL CHOLESTEROL 181(H) <=130 mg/dL 02/29/2024 4:57 PM CDT [facility] VLDL CHOLESTEROL 28 <=30 mg/dL 02/29/2024 4:57 PM CDT [facility] PROVIDER ORDERED STATUS RANDOM 02/29/2024 4:57 PM CDT [facility] Blood BLOOD SPECIMEN / Unknown Venipuncture / Unknown 02/28/2024 5:02 PM CDT 02/28/2024 5:02 PM CDT Leif Booker MD CHEMISTRY Final Re sult [facility] [address] [place] [address], [place] * COLONOSCOPY (12/15/2022 11:08 AM CDT) 12/15/2022 11:0 8 AM CDT Narrative Transcriptions Calin Stevens MD - 12/15/2022 1:21 PM CDT Patient Name: Marcel Rivera Procedure Date: 12/15/2022 Gender: Male Date of : 1975 Admit Type: Outpatient Procedure: Colonoscopy Proceduralist: Calin Stevens MD , Destiney Mendoza (Nurse), Flor Bose (Nurse) Referring MD: Leif Booker Indications/Pre-Op Diagnosis: Screening in patient at increased risk:Family history of 1st-degree relative withcolorectal cancer, This is the patient's firstcolonoscopy Medications: Fentanyl 100 micrograms IV, Midazolam 4 mgIV Procedure Description: The patient had risks, benefits and alternatives explained to andgave informed consent. The patient had a stable cardiopulmonary status and judged an adequate candidate for conscious sedation. The endoscope [id number]-[id number] was passed through the anus andadvanced to the cecum, identified by appendiceal orifice and ileocecal valve.The colonoscopy was performed without difficulty. The patient toleratedthe procedure well. The quality of the bowel preparation was good. The ileocecal valve, appendiceal orifice, and rectum were photographed. Complications: No immediate complications. Estimated Blood Loss & Specimen: Estimated blood loss: none. Specimen collected - Yes and sent to Laboratory Findings: The perianal and digital rectal examinations were normal. Two sessile polyps were found in the transverse colon. The polypswere 1 to 2 mm in size. These polyps were removed with a cold biopsyforceps. Resection and retrieval were complete. A 4 mm polyp was found in the descending colon. The polyp wassessile. The polyp was removed with a cold snare. Resection and retrieval were complete. The exam was otherwise without abnormality. Impressions/Post-Op Diagnosis: - Two 1 to 2 mm polyps in the transverse colon, removed with a cold biopsy forceps. Resected and retrieved. - One 4 mm polyp in the descending colon, removed with a cold snare. Resected and retrieved. - The examination was otherwise normal. Recommendation: - Patient has a contact number available for emergencies. The signsand symptoms of potential delayed complications were discussed with the patient. Return to normal activities tomorrow. Written discharge instructions were provided to the patient. - Resume previous diet. - Continue present medications. - Await pathology results. - Repeat colonoscopy is recommended. The colonoscopy date will be determined after pathology results from today's exam become available for review. - Resume Coumadin (warfarin) at prior dose today. Refer to managing physician for further adjustment of therapy. Moderate Sedation: A time out was performed before the procedure. Moderate (conscious) sedation was administered by the endoscopy nurse and supervised bythe endoscopist. The following parameters were monitored: oxygensaturation, heart rate, blood pressure, EKG, CO2, respiratory rate, adequacy of pulmonary ventilation and reponse to care. Please refer to the patient's medical record flowsheets and nursing notes for moderate sedation details. Total physician intraservice time was 23 minutes. Calin Stevens MD 12/15/2022 12:03:01 PM This report has been signed electronically. Note Initiated On: 12/15/2022 11:08 AM Procedure Code(s): --- Professional --- 73965, Colonoscopy, flexible; with removalof tumor(s), polyp(s), or other lesion(s) bysnare technique 57195, 59, Colonoscopy, flexible; withbiopsy, single or multiple Diagnosis Code(s): --- Professional --- Z80.0, Family history of malignant neoplasmof digestive organs D12.3, Benign neoplasm of transverse colon (hepatic flexure or splenic flexure) D12.4, Benign neoplasm of descending colon CPT copyright 2021 [employer]. All rights reserved. The codes documented in this report are preliminary and upon election supervisor reviewmay be revised to meet current compliance requirements. Scope In: 11:33:57 AM Scope Withdrawal Time 0 hours 18 minutes 2 seconds Scope Out: 11:54:40 AM us Calin Stevens MD PROCEDURE ORD Edited Re sult - Final from Last 3 Months or Most Recently Relevant to Health Maintenance Insurance [facility] Advance Directives Documents on File Type Date Recorded Patient Tax Credit Leasing Consultant Expl anation Power of Utilities Estimator And Drafter 06/03/2019 5:50 PM HUMBERTO RIVERA AND LEIF MCKAY, 02/18/2018 Healthcare Directive 06/03/2019 5:50 PM * Full Code (Latest Code Status on File) Date Activated Date Inactivated Comments 05/20/2019 6:11 AM 05/24/2019 5:07 PM Care Teams Associate Professor Of Chemistry Relationship Specialty Start Date End Date Votel, Leif Odonnell MD [address] [facility] [address] PCP - General 12/10/09
--- NOTE | 2025-02-09 13:24 | CRLHL7_ITS ---
For Patients: As a result of the Century Cures Act, medical imaging exams and procedure reports are released immediately into your electronic medical record. You may view this report before your referring provider. If you have questions, please contact your health care provider. INDICATION: Forearm bruise, patient on Coumadin. TECHNIQUE: Ultrasound venous duplex upper left extremity. Compression venous exam was performed using vela-scale, color Doppler, and spectral Doppler analysis. COMPARISON: None. FINDINGS: Left internal jugular vein shows normal compression and waveforms. Left brachiocephalic and subclavian veins show normal waveforms. Left axillary, brachial, basilic and cephalic veins show normal compression and waveforms. At the site of the patient`s palpable lump there is a hypoechoic avascular collection measuring 5 x 3 x 3 millimeters. IMPRESSION: 1. No evidence of deep venous thrombosis left upper extremity. 2. At the site of the patient`s palpable abnormality there is a hypoechoic avascular structure measuring up to 5 millimeters. In the setting of trauma this would be suspicious for a small hematoma. As this is a palpable lesion, management can be based on clinical grounds. Dictated by Erik Peraza MD @ 02/09/2025 2:32:38 PM (Electronically Signed)
--- NOTE | 2025-02-09 13:27 | ED.GENADULT ---
HPI - General Adult General Chief complaint: Skin/Abscess/Foreign Body Stated complaint: L arm bruise, on thinners Time Seen by Provider: 02/09/25 13:05 History of Present Illness HPI narrative: This 49-year-old male is on Coumadin for a mechanical heart valve. 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 He comes in today however because of a more sizable bruise on his left forearm with a central small lump. He is concerned about this particular bruise and is requesting imaging to rule out a blood clot or hematoma. He does not have any other complaints. Related Data Home Medications ?Medication ?Instructions ?Recorded ?Confirmed aspirin .Route 04/30/22 lisinopril 5 mg tablet mg 04/30/22 metoprolol succinate 25 mg mg PO 04/30/22 tablet,extended release 24 hr omeprazole 20 mg capsule,delayed mg 04/30/22 release warfarin 2.5 mg tablet mg 04/30/22 Allergies Allergy/AdvReac Type Severity Reaction Status Date / Time No Known Drug Allergies Allergy Verified 04/30/22 15:16 Review of Systems Status of ROS: Reports: 10 or more systems reviewed and unremarkable except as noted in History and below Narrative: Constitutional: No fevers, no weight gain or loss. Eyes: No discharge. No vision changes. HENT: No congestion, no sore throat, no ear pain. Cardiovascular: No chest pain, no palpitations. Respiratory: No shortness of breath, no wheezes, no cough. Gastrointestinal: No abdominal pain, no vomiting, no diarrhea. Genitourinary: No dysuria, no hematuria. Musculoskeletal: Normal range of motion. Skin: No rashes, no pruritis. Neurological: No dizziness, weakness, sensory change, speech change. Endo/Heme/Allergies: No bleeding. No polydipsia. He has recurrent bruising because of Coumadin therapy. Pysch: no suicidality, no anxiety, no insomnia. All other systems reviewed and are negative. [facility] Social History Smoking Status: Former smoker Do you use any of these nicotine containing products: None Second hand tobacco smoke exposure: No How often do you have a drink containing alcohol: monthly or less How many standard drinks containing alcohol do you have on a typical day: 1 or 2 How often do you have six or more drinks on one occasion: Never AUDIT-C Alcohol total score: 1 Non-prescribed substance use: denies use Exam Narrative: Exam Narrative: Constitutional: Well-developed, well-nourished, no acute distress. HEENT: Normocephalic, atraumatic. Neck: Normal range of motion. Nontender. Supple. Heart: Regular. No murmurs. Normal rate. Intact distal pulses. Lungs: Clear to auscultation. No chest discomfort. No wheezes, rhonchi, or rales. Abdomen: Normal bowel sounds. Nontender. No rebound tenderness. Genitalia: Deferred. Back: No midline tenderness. Normal range of motion. Extremities: Normal range of motion. Bruise on the left forearm with small central area a with palpable lump which itself is about 2 cm in diameter. Skin: Intact. No rash. Warm. No erythema or pallor. Neurologic: No altered sensation. No weakness. Alert and oriented. Psychiatric: No suicidality. No anxiety or depression. No insomnia. Nursing notes and vitals signs are reviewed. Const: Vital Signs, click to edit/add: Vital Signs - 24 hr 02/09/25 13:02 Temperature 96.0 F L Pulse Rate [Pulse Oximeter] 59 L Respiratory Rate 16 Blood Pressure [Ri ght Upper Arm] 157/78 H Pulse Oximetry 96 Oxygen Delivery Me thod Room Air Course Vital Signs Vital signs: Initial Vital Signs Temperature 96.0 F L 02/09/25 13:02 Temperature Source Temporal Artery Scan 02/09/25 13:02 Pulse Rate 59 L 02/09/25 13:02 Respiratory Rate 16 02/09/25 13:02 Blood Pressure 157/78 H 02/09/25 13:02 Blood Pressure Mean 104 02/09/25 13:02 Blood Pressure Position Sitting 02/09/25 13:02 Pulse Oximetry 96 02/09/25 13:02 Oxygen Delivery Method Room Air 02/09/25 13:02 Vital Signs Temperature 96.0 F L 02/09/25 13:02 Pulse Rate 59 L 02/09/25 13:02 Respiratory Rate 16 02/09/25 13:02 Blood Pressure 157/78 H 02/09/25 13:02 Pulse Oximetry 96 02/09/25 13:02 Oxygen Delivery Method Room Air 02/09/25 13:02 Temperature 96.0 F L 02/09/25 13:02 Pulse Rate 59 L 02/09/25 13:02 Respiratory Rate 16 02/09/25 13:02 Blood Pressure 157/78 H 02/09/25 13:02 Pulse Oximetry 96 02/09/25 13:02 Oxygen Delivery Method Room Air 02/09/25 13:02 Medical Decision Making MDM Narrative Medical decision making narrative: This patient has a bruise on his left forearm that has a central area a that is present take with a firm lump that is rather small. An ultrasound is obtained and shows no evidence of deep venous thrombosis. There is a small area that likely represented a hematoma that is resolving. This was reassuring to the patient. He is okay to be discharged home. Imaging Data Venous US: Radiologist's impression: 1. No evidence of deep venous thrombosis left upper extremity. 2. At the site of the patient`s palpable abnormality there is a hypoechoic avascular structure measuring up to 5 millimeters. In the setting of trauma this would be suspicious for a small hematoma. As this is a palpable lesion, management can be based on clinical grounds. Discharge Plan Discharge Clinical Impression: Hematoma Patient Disposition: Home, Self-Care Condition: Stable Additional Instructions: Continue current plans. Follow up with MD return if worsening. Prescriptions: No Action warfarin 2.5 mg tablet omeprazole 20 mg capsule,delayed release(DR/EC) lisinopril 5 mg tablet metoprolol succinate 25 mg tablet extended release 24 hr PO aspirin [Baby Aspirin] .Route Follow Up/Referrals: Provider,Not a Local [Non-Staff, Family Practice] Stand Alone Forms: [employer] Info Instructions
== END 2025-02-09 14:41 | disposition home or self-care (01) ==
PROVIDERS: Emergency Provider Emergency Medicine Emergency Medical Services; PCP Family Medicine
DX: S50.12XA Contusion of left forearm, initial encounter (principal); Z79.01 Long term (current) use of anticoagulants
CPT/HCPCS: 93971; 99283; 99284